=== PATIENT | male | born 1935 | race Caucasian/White ===

== ENCOUNTER → 2017-02-20 08:11 | Outpatient (CLI) | payer MEDICARE ==
[2013-04-14 16:31] VITALS: BMI 26.6
[~2017-02-20 08:11] MED LIST: ASPIRIN325 MG PO; BYSTOLIC10 MG PO; ENTRESTO 24 MG1 EACH PO; IMDUR30 MG PO; LANOXIN125 MCG PO; LASIX40 MG PO; LISINOPRIL10 MG; LISINOPRIL10 MG GT; LISINOPRIL10 MG NG; LISINOPRIL10 MG PO; LORTAB LIQUID15 ML PO; MICRO-K10 MEQ PO; NITRO-DUR0.4 MG TD; NITROSTAT0.4 MG SL; PLAVIX75 MG PO; SOMA350 MG; SOMA350 MG PO; SPIRIVA18 MCG INH; TENORMIN100 MG PO; TENORMIN50 MG PO; VALIUM10 MG PO; ZESTRIL10 MG PO
[2017-02-20 08:36] LABS: BASOPHILS 1.1 % (0-2); EOSINOPHILS 4.6 % (0-7); HEMOGLOBIN 13.7 g/dL (13.5-17.5); IMMATURE GRANULOCYTES 0.4 % (0-5); LYMPHOCYTES 16.5 % (15-50); MCH 30.7 pg (26.0-34.0); MCHC 33.4 g/dL (31.0-37.0); MCV 91.9 fL (80.0-100.0); MEAN PLATELET VOLUME 10.8 fL (7.4-10.4); NEUTROPHILS 61.4 % (40-80); PLATELET COUNT 170 10x3/uL (130-400); RBC 4.46 10x6/uL (4.20-6.10); RDW 14.6 % (11.5-14.5)
[2017-02-20 09:05] LABS: ALBUMIN 3.4 g/dL (3.4-5.0); ALKALINE PHOSPHATASE 79 U/L (46-116); ALT (SGPT) 15 U/L (10-68); BILIRUBIN - TOTAL 2.76 mg/dL (0.2-1.3); CALC OSMOLALITY 286 mosm/kg (275-300); CALCIUM 8.9 mg/dL (8.5-10.1); CARBON DIOXIDE 32.5 mmol/L (21.0-32.0); CHLORIDE - SERUM 103 mmol/L (98-107); CHOL - HDL RATIO 3.4 ratio (2.3-4.9); CHOLESTEROL, TOTAL 179 mg/dL (0-200); GLUCOSE 92 mg/dL (74-106); HDL CHOLESTEROL 52 mg/dL (32-96); LDL CHOLESTEROL 110 mg/dL (0-100); LDL-HDL RATIO 2.1 ratio (1.5-3.5); PROTEIN - SERUM 6.7 g/dL (6.4-8.2); SODIUM 144 mmol/L (136-145); THYROID STIMULATING HORMONE 0.46 uIU/mL (0.36-3.74); TRIGLYCERIDE 87 mg/dL (30-200); UREA NITROGEN 12 mg/dL (7-18); eGFR NON AFRICAN AMERICAN 76 mL/min (90-120)
== END | disposition home or self-care (01) ==
LOC: D.LAB 08:00
PROVIDERS: Family Medicine
DX: Z00.00 Encounter for general adult medical examination without abnormal findings (principal); I10 Essential (primary) hypertension; R53.83 Other fatigue; I20.8 Other forms of angina pectoris; J44.9 Chronic obstructive pulmonary disease, unspecified

== ENCOUNTER 2017-02-22 11:21 | Inpatient (IN) | payer MEDICARE ==
[~2017-02-22 11:21] MED LIST changes: -ENTRESTO 24 MG1 EACH PO; -NITROSTAT0.4 MG SL; -SPIRIVA18 MCG INH; -TENORMIN50 MG PO
[2017-02-22 12:21] LABS: APPEARANCE CLEAR (CLEAR); BILIRUBIN NEGATIVE (NEGATIVE); COLOR DK YELLOW (YELLOW); GLUCOSE NEGATIVE (NEGATIVE); KETONE MODERATE mg/dL (NEGATIVE); NITRITE NEGATIVE (NEGATIVE); PROTEIN NEGATIVE (NEGATIVE); SPECIFIC GRAVITY 1.025 (1.005-1.020)
[2017-02-22 12:22] LABS: BACTERIA MODERATE /hpf (NONE SEEN); HYALINE CAST OCC /lpf (NONE SEEN); MUCUS >1+ /lpf (NONE SEEN); RED CELLS - URINE OCC /hpf (0-5)
[2017-02-22 13:29] LABS: BASOPHILS 0.4 % (0-2); EOSINOPHILS 1.3 % (0-7); HEMATOCRIT 42.6 % (42.0-54.0); HEMOGLOBIN 13.9 g/dL (13.5-17.5); IMMATURE GRANULOCYTES 0.3 % (0-5); LYMPHOCYTES 17.4 % (15-50); MCH 30.1 pg (26.0-34.0); MCHC 32.6 g/dL (31.0-37.0); MCV 92.2 fL (80.0-100.0); MEAN PLATELET VOLUME 10.7 fL (7.4-10.4); MONOCYTES 11.4 % (2-11); NEUTROPHILS 69.2 % (40-80); PLATELET COUNT 186 10x3/uL (130-400); RBC 4.62 10x6/uL (4.20-6.10); RDW 14.7 % (11.5-14.5); WBC 7.5 10x3/uL (4.8-10.8)
[2017-02-22 13:55] LABS: ALBUMIN 3.4 g/dL (3.4-5.0); ALKALINE PHOSPHATASE 85 U/L (46-116); ALT (SGPT) 8 U/L (10-68); BILIRUBIN - TOTAL 1.42 mg/dL (0.2-1.3); CALC OSMOLALITY 282 mosm/kg (275-300); CALCIUM 8.9 mg/dL (8.5-10.1); CARBON DIOXIDE 30.2 mmol/L (21.0-32.0); CHLORIDE - SERUM 105 mmol/L (98-107); CREATINE KINASE 55 UL (21-232); CREATININE - SERUM 0.9 mg/dL (0.6-1.3); GLUCOSE 87 mg/dL (74-106); PROTEIN - SERUM 6.5 g/dL (6.4-8.2); SODIUM 143 mmol/L (136-145); UREA NITROGEN 11 mg/dL (7-18); eGFR NON AFRICAN AMERICAN 85 mL/min (90-120)
[2017-02-22 13:57] LABS: POTASSIUM - SERUM 2.4 mmol/L (3.5-5.1)
[2017-02-22 20:00] VITALS: BP 153/72
[2017-02-22] MEDS ORDERED: ENTRESTO 24 MG1 EACH PO (22:00)
[2017-02-22] MEDS ORDERED: TENORMIN50 MG PO (22:01)
[2017-02-22] MEDS ORDERED: NITROSTAT0.4 MG SL (22:01)
[2017-02-23] VITALS (8 sets, daily range): BP systolic 135–163; BP diastolic 70–92; BMI 27.6
--- NOTE | 2017-02-23 04:48 | NUR ---
REC'D REPORT FROM ZAY BENITEZ FROM THE ER. BROUGHT BY WHEELCHAIR. HAS A RIGHT FOREARM IV THAT IS SALINE LOCKED. ALERT AND ORIENTED X3. SWELLING IN LOWER EXTREMITIES. IS COMPLAINING OF A HEADACHE. WILL CALL TO GET SOMETHING FOR HIM. DID ADMISSION HISTORY AND MED REC. ZAY REYES WILL DO THE ASSESSMENT. INSTRUCTED TO CALL IF NEEDED ANYTHING, VERBALIZED UNDERSTANDING. BED LOW, LOCKED, CALL LIGHT IN REACH, ALARM ON.
--- NOTE | 2017-02-23 04:51 | NUR ---
PULLED IV OUT OF RIGHT FOREARM. THERE IS A BRUISE FORMING AND A KNOT WELL. TRIED TO RESTART IV AND COULD NOT GET IT. ZAY MART TRIED 3 MORE TIMES AND COULD NOT GET ANYTHING WELL. WILL LET DAYSHIFT NURSE KNOW. IS GETTING NOTHING BY IV AT THIS TIME.
[2017-02-23 06:33] LABS: BASOPHILS 0.4 % (0-2); EOSINOPHILS 3.1 % (0-7); HEMATOCRIT 41.9 % (42.0-54.0); HEMOGLOBIN 13.8 g/dL (13.5-17.5); IMMATURE GRANULOCYTES 0.3 % (0-5); LYMPHOCYTES 17.3 % (15-50); MCH 30.5 pg (26.0-34.0); MCHC 32.9 g/dL (31.0-37.0); MCV 92.5 fL (80.0-100.0); MEAN PLATELET VOLUME 10.5 fL (7.4-10.4); MONOCYTES 15.6 % (2-11); NEUTROPHILS 63.3 % (40-80); PLATELET COUNT 183 10x3/uL (130-400); RBC 4.53 10x6/uL (4.20-6.10); RDW 14.9 % (11.5-14.5); WBC 7.1 10x3/uL (4.8-10.8)
[2017-02-23 06:51] LABS: CALC OSMOLALITY 283 mosm/kg (275-300); CALCIUM 8.7 mg/dL (8.5-10.1); CHLORIDE - SERUM 106 mmol/L (98-107); CREATININE - SERUM 0.9 mg/dL (0.6-1.3); GLUCOSE 93 mg/dL (74-106); MAGNESIUM - SERUM 1.7 mg/dL (1.8-2.4); PHOSPHOROUS 1.9 mg/dL (2.5-4.9); SODIUM 143 mmol/L (136-145); UREA NITROGEN 11 mg/dL (7-18); eGFR NON AFRICAN AMERICAN 85 mL/min (90-120)
[2017-02-23 06:52] LABS: POTASSIUM - SERUM 2.8 mmol/L (3.5-5.1)
--- NOTE | 2017-02-23 07:59 | NUR ---
22G IV SITED TO PT'S LEFT HAND BY ELZA GONZALES X1 ATTEMPT. BRISK BLOOD RETURN PRESENT. RESTARTED IV FLUIDS AT THIS TIME. BED ALARM ON. URINAL AND CALL LIGHT IN REACH, WILL CONTINUE WITH PLAN OF CARE.
--- NOTE | 2017-02-23 09:54 | NUR ---
SCHEDULED MEDICATIONS ADMINISTERED AT THIS TIME. TAKEN WITHOUT DIFFICULTY.
--- NOTE | 2017-02-23 11:52 | NUR ---
REPORT CALLED TO MIGDALIA AT [facility]. WILL CALL AND LET HER KNOW WHEN AMBULANCE ARRIVES TO TRANSPORT PT.
--- NOTE | 2017-02-23 15:45 | NUR ---
POSITIONED UPRIGHT IN BED AT THIS TIME. SCD'S AND BED ALARM ON. CALL LIGHT IN REACH, WILL CONTINUE WITH PLAN OF CARE.
--- NOTE | 2017-02-23 19:59 | NUR ---
PATIENT RESTING IN BED AND DENIES NEEDS AT THIS TIME. BED IN LOWEST POSITION AND CALL LIGHT WITHI REACH. ENCOURAGED THE PATIENT TO CALL IF HE HAS NEEDS.
--- NOTE | 2017-02-23 21:40 | NUR ---
INFORMED JOSE LUIS REINFORCER THAT I NEED UNVERIFIED MEDS PULLED FOR THE PATIENT
[2017-02-24 04:06] VITALS: BP 116/77
[2017-02-24 05:30] LABS: BASOPHILS 0.4 % (0-2); EOSINOPHILS 0.7 % (0-7); HEMATOCRIT 39.3 % (42.0-54.0); HEMOGLOBIN 12.8 g/dL (13.5-17.5); IMMATURE GRANULOCYTES 0.3 % (0-5); LYMPHOCYTES 16.6 % (15-50); MCH 30.2 pg (26.0-34.0); MCHC 32.6 g/dL (31.0-37.0); MCV 92.7 fL (80.0-100.0); MEAN PLATELET VOLUME 10.6 fL (7.4-10.4); MONOCYTES 11.7 % (2-11); NEUTROPHILS 70.3 % (40-80); PLATELET COUNT 157 10x3/uL (130-400); RBC 4.24 10x6/uL (4.20-6.10); WBC 7.3 10x3/uL (4.8-10.8)
[2017-02-24 05:39] LABS: CALC OSMOLALITY 284 mosm/kg (275-300); CALCIUM 8.9 mg/dL (8.5-10.1); CARBON DIOXIDE 29.4 mmol/L (21.0-32.0); CHLORIDE - SERUM 107 mmol/L (98-107); CREATININE - SERUM 0.8 mg/dL (0.6-1.3); GLUCOSE 106 mg/dL (74-106); POTASSIUM - SERUM 3.6 mmol/L (3.5-5.1); SODIUM 143 mmol/L (136-145); UREA NITROGEN 12 mg/dL (7-18); eGFR NON AFRICAN AMERICAN > 90 mL/min (90-120)
[2017-02-24 06:13] LABS: MAGNESIUM - SERUM 1.8 mg/dL (1.8-2.4)
[2017-02-24 06:15] LABS: PHOSPHOROUS 2.7 mg/dL (2.5-4.9)
--- NOTE | 2017-02-24 07:45 | NUR ---
ASSESSMENT PER FLOW SHEET.PT WITHOUT DISTRESS.DENIES NEEDS AT PRESENT.CALL LIGHT IN REACH. BED ALARM ON AND DOOR OPEN.MONITOR FOR NEEDS
[2017-02-24 10:00] VITALS: BP 153/81
--- NOTE | 2017-02-24 11:43 | NUR ---
REMAINS WITHOUT NEEDS.FALL PREVENTION IN PROGRESS.
[2017-02-24 12:20] VITALS: BP 126/85
--- NOTE | 2017-02-24 14:54 | NUR ---
TO SEE PT. PT REMAINS WITHOUT DISTRESS.ORDERS RECIEVED AND INITIATED
[2017-02-24 16:06] VITALS: BP 148/84
--- NOTE | 2017-02-24 18:37 | NUR ---
REMAINS WITHOUT CHANGE FROM INITIAL ASSESSMENT.CONT PLAN OF CARE
[2017-02-24 20:43] VITALS: BP 156/82
[2017-02-25] VITALS: BP 139/75
--- NOTE | 2017-02-25 01:59 | NUR ---
PATIENT RESTING IN BED AND DENIES NEEDS AT THIS TIME. COMPLETED ASSESSMENT AND VITALS. PATIENT DENIES NEEDS AT THIS TIME. BED IN LOWEST POSITION AND CALL LIGHT WITHIN REACH. ENCOURAGED THE PATIENT TO CALL IF HE HAS NEEDS.
[2017-02-25 04:00] VITALS: BP 140/72
[2017-02-25 04:51] LABS: BASOPHILS 0.4 % (0-2); EOSINOPHILS 2.8 % (0-7); HEMATOCRIT 41.1 % (42.0-54.0); HEMOGLOBIN 13.1 g/dL (13.5-17.5); IMMATURE GRANULOCYTES 0.4 % (0-5); MCH 29.6 pg (26.0-34.0); MCHC 31.9 g/dL (31.0-37.0); MONOCYTES 12.8 % (2-11); NEUTROPHILS 64.6 % (40-80); PLATELET COUNT 149 10x3/uL (130-400); RBC 4.42 10x6/uL (4.20-6.10); RDW 14.9 % (11.5-14.5); WBC 7.9 10x3/uL (4.8-10.8)
[2017-02-25 04:58] LABS: CALC OSMOLALITY 283 mosm/kg (275-300); CARBON DIOXIDE 28.1 mmol/L (21.0-32.0); CHLORIDE - SERUM 105 mmol/L (98-107); CREATININE - SERUM 0.9 mg/dL (0.6-1.3); GLUCOSE 93 mg/dL (74-106); POTASSIUM - SERUM 3.7 mmol/L (3.5-5.1); SODIUM 142 mmol/L (136-145); UREA NITROGEN 14 mg/dL (7-18); eGFR NON AFRICAN AMERICAN 85 mL/min (90-120)
--- NOTE | 2017-02-25 08:00 | NUR ---
PT AOX4 RESP EVEN AND NONLABORED PT DENIES NEEDS AT THIS TIME IV TO LEFT HAND PATENT AND INTACT AT THIS TIME SRX2 BED AT LOWEST SETTING CALL LIGHT WITHIN REACH WILL CONTINUE TO MONITOR
[2017-02-25 08:31] VITALS: BP 152/71
--- NOTE | 2017-02-25 10:39 | NUR ---
Patient Name: SAVANAH GEORGE Admission Status: ER Accout number: [id number] Admission Date: 02-22-2017 : 1933 Admission Diagnosis: Attending: FEDERICO MAYER Current LOS: 3 Anticipated DC Date: 02-27-2017 Planned Disposition: Home Primary Insurance: MEDICARE A & B Discharge Planning Comments: CM MET WITH PATIENT AND CALLED NEPHEW (MANUEL) REGARDING DISCHARGE NEEDS AND PLANS. PATIENT STATED HE HAS BEEN LIVING ALONE BUT WILL BE MOVING IN WITH HIS NEPHEW AT DISCHARGE. NEPHEW STATED THERE IS A RAMP AT HIS HOME AND NO STAIRS INSIDE. PATIENT STATED HE HAS HELP WITH BATHS, DRESSING, AND MEDICATIONS. PATIENT HAS AN ELECTRIC WHEELCHAIR, CANE, ELEV TOILET SEAT, OXYGEN, NEBULIZER, AND PORTABLE O2 AT HOME. CINDY IS CURRENT WITH [facility], AND ITS ABOUT YOU. NEPHEW STATED HE WILL DRIVE PATIENT HOME AT DISCHARGE. CM WILL CONTINUE TO FOLLOW PATIENT WITH D/C NEEDS AND PLANS. PCP DR[facility]- [phone] MANUEL (NEPHLELIA) [phone] Toll Repairer Central Office: Silke Zaragoza Is the patient Alert and Oriented? Yes 0 * How many steps to enter\exit or inside your home? RAMP 0 * PCP DR. MAYER 0 * Pharmacy [facility] * Preadmission Environment Home Alone 0 * ADLs Independent 0 * Equipment Cane Elevated Toliet Seat Nebulizer Oxygen 0 * Other Equipment ELEC. WHEELCHAIR 0 * List name and contact numbers for known caregivers / representatives who currently or will assist patient after discharge: MANUEL GEORGE (NEPHEW) [phone] 0 * Community resources currently utilized Home Health 0 * Please name any agencies selected above. [facility] [address] [facility] ABOUT YOU 0 * Additional services required to return to the preadmission environment? Yes 0 * Can the patient safely return to the preadmission environment? No 0 * Has this patient been hospitalized within the prior 30 days at any hospital? No 0 Grand Total: 0
[2017-02-25 12:28] VITALS: BP 148/84
[2017-02-25] MEDS ORDERED: SPIRIVA18 MCG INH (13:34)
[2017-02-25 13:50] VITALS: BMI 26.8
[2017-02-25 16:38] VITALS: BP 140/64
--- NOTE | 2017-02-25 19:51 | NUR ---
PATIENT RESTING IN BED AND DENIES NEEDS AT THIS TIME. PATIENT'S DINNER TRAY IS STILL AT BEDSIDE. PATIENT DID NOT EAT ANY OF HIS DINNER AND STATED THAT HE IS NOT HUNGRY. EMPIED 150 ML OUT OF THE PATIENTLS URINAL. ASSESSMENT COMPLETE. BED IN LOWEST POSITION, CALL LIGHT WITHIN REACH, AND BED ALARM ON. ENCOURAGED THE PATIENT TO CALL IF HE HAS NEEDS.
[2017-02-25 20:00] VITALS: BP 133/70
[2017-02-26] VITALS: BP 146/72
--- NOTE | 2017-02-26 01:59 | NUR ---
ATTEMPTED TO PUT AN IV IN PATIENT AND WAS UNSUCCESSFUL. PATIENT STATED THAT HE WANTS TO WAIT UNTIL HE FINDS OUT IF HE IS BEING D/C'D BEFORE WE ATTEMPT ANOTHER IV.
[2017-02-26 04:00] VITALS: BP 134/68
[2017-02-26 08:26] VITALS: BP 159/80
--- NOTE | 2017-02-26 10:09 | NUR ---
REHAB PRESCREENING PT consult has been ordered. Rehab will continue to follow this patient for PT Evaluation to assess if patient meets rehab admission criteria. Thank you for this referral! Clotilde Nickerson, EVENTS ASSISTANT Rehab Circuits Engineer
--- NOTE | 2017-02-26 11:19 | NUR ---
Rehab Note- Visited with the patient, he is very interested in [facility] acute rehab when medically stable and ready for discharge from the acute hospital. Will follow at this time. Thank you for this referral! Shraddha Macdonald RN Clinical Liaison, [facility] Rehab
[2017-02-26 12:56] VITALS: BP 127/70
--- NOTE | 2017-02-26 15:18 | NUR ---
CM REASSESSMENT NOTE: PATIENT HAS BEEN ACCEPTED TO IP REHAB TODAY. FAMILY NOTIFIED (MANUEL). IMM SERVED
[2017-02-26 16:27] VITALS: BP 127/70
--- NOTE | 2017-02-26 17:37 | NUR ---
PT GIVEN DISCHARGE INSTRUCTIONS AT THIS TIME TAKEN VIA WHEELCHAIR FROM MED/SURG TO INPATIENT REHAB AT THIS TIME
== END 2017-02-26 17:38 | DRG 698 ==
LOC: D.ER 11:21 → D.M2 17:30 → D.SDCHOLD 18:41 → D.MS 19:57
PROVIDERS: Family Medicine; ADMIT Family Medicine
DX: T83.518A Infection and inflammatory reaction due to other urinary catheter, initial encounter (principal); J18.9 Pneumonia, unspecified organism; G93.41 Metabolic encephalopathy; G93.49 Other encephalopathy; N39.0 Urinary tract infection, site not specified; R41.0 Disorientation, unspecified; E87.6 Hypokalemia; E86.0 Dehydration; F41.9 Anxiety disorder, unspecified; R26.9 Unspecified abnormalities of gait and mobility; G89.4 Chronic pain syndrome; R53.81 Other malaise; I10 Essential (primary) hypertension; Z95.1 Presence of aortocoronary bypass graft; E78.5 Hyperlipidemia, unspecified

== ENCOUNTER 2017-02-26 17:15 | Inpatient (IN) | payer MEDICARE ==
[~2017-02-26 17:15] MED LIST changes: +ENTRESTO 24 MG1 EACH PO; +NITROSTAT0.4 MG SL; +SPIRIVA18 MCG INH; +TENORMIN50 MG PO
--- NOTE | 2017-02-26 19:20 | NUR ---
ASSESS PT VITAL SIGNS, RESULT SEE FLOWSHEET.
[2017-02-26 22:53] VITALS: BP 152/87; BMI 25.9
--- NOTE | 2017-02-26 23:15 | NUR ---
ASSESSMENT COMPLETED. ELZA GARCIA TO ADMINISTER NITRO S.L. FOR CHEST PAIN @ #7. NO SOB OR SWEATING OBSERVED. CALL LIGHT WITHIN REACH FOR ANY NEEDS.
--- NOTE | 2017-02-26 23:17 | NUR ---
PT C/O CHEST PAIN, ONE NITROSTAT 0.4MG TABLET GIVEN.
--- NOTE | 2017-02-26 23:22 | NUR ---
REASSESS PT FOR CHEST PAIN, STATE:" NO CHEST PAIN."
--- NOTE | 2017-02-27 03:50 | NUR ---
REST QUIETLY IN BED, EYE CLOSE, CALL LIGHT IN REACH.
--- NOTE | 2017-02-27 08:00 | NUR ---
PATIENT ALERT WITH SOME CONFUSION. FALL RISK. BED ALARM ON. CALL LIGHT WITHIN REACH. VOICES NO NEEDS AT THIS TIME.
[2017-02-27 08:33] VITALS: BP 152/92
[2017-02-27 09:39] LABS: CKMB 0.5 U/L (0.0-3.6); CREATINE KINASE 82 UL (21-232); TROPONIN-I 0.038 ng/mL (0.000-0.060)
--- NOTE | 2017-02-27 11:00 | NUR ---
PAOLO FROM FRON OFFICE DOWN TO PUT PATIENTS WALLET IN SAFE. PATIENT HAD MULTIPLE CARDS AND OVER FOUR HUNDRED DOLLARS WORTH OF RIVERA IN WALLET.
[2017-02-27 13:35] VITALS: BMI 25.8
--- NOTE | 2017-02-27 14:52 | NUR ---
SPEECH THERAPIST IN ROOM WORKING WITH CINDY.
--- NOTE | 2017-02-27 16:00 | NUR ---
RESTING QUIETLY.DENIES NEEDS.
--- NOTE | 2017-02-27 18:34 | NUR ---
PATIENT HELPED INTO BATHROOM. MIN ASST OF ONE PERSON. FROM TRANSFERS. PATIENT ABLE TO DO OWN PERICARE.
--- NOTE | 2017-02-27 19:35 | NUR ---
sitting up in bed watching tv. offers no complaints. alert to person and place. call light within reach. bed alarm on and bed low. will continue to montior
[2017-02-27 20:00] VITALS: BP 141/66
--- NOTE | 2017-02-27 22:17 | NUR ---
SITTING UP IN BED EYES CLOSED RESTING COMFORTABLY. APPROPRIATE RISE AND FALL OF CHEST. NO S/SX OF DISTRESS. CALL LIGHT WITHIN REACH. BED LOW AND ALARM ON. WILL CONTINUE TO MONITOR
--- NOTE | 2017-02-28 00:25 | NUR ---
ASSISTED PT TO BATHROOM AND BACK TO BED.
--- NOTE | 2017-02-28 03:45 | NUR ---
RESTING IN BED WITH EYES CLOSEED. NO S/S OF DISTRESS OBSERVED. ALARM IN PLACE AND FUNCTIONAL. URINAL IN REACH. HOB ELEVATED TO 90 DEGREES. NOT WEARING O2@ THIS TIME. RESP. EVEN AND UNLABORED.
--- NOTE | 2017-02-28 04:30 | NUR ---
REST IN BED, CALL LIGHT IN REACH.
--- NOTE | 2017-02-28 07:25 | NUR ---
SITTING UP IN BED WATCHING MORNING NEWS. DENIES ANY NEEDS. CALL LIGHT WITHIN REACH. BED IN LOWEST POSITION AND ALARM ON. WILL CONTINUE TO MONITOR
[2017-02-28 08:27] VITALS: BP 144/63
--- NOTE | 2017-02-28 10:45 | NUR ---
IN THERAPY GYM WITH PHYSICAL THERAPY. NO S/SX OF DISTRESS. DENIES PAIN. WILL CONTINUE TO MONITOR
--- NOTE | 2017-02-28 12:37 | NUR ---
SITTING UP IN BED EATING LUNCH. DENIES NEEDS OR PAIN. CALL LIGHT WITHIN REACH. WILL CONTINUE TO MONITOR
--- NOTE | 2017-02-28 14:49 | NUR ---
RD note Pt visisted and chart reviewed Pt reports he does not have an appetite and does not know why. He reported he feels tired and weak, RD encouraged po intake. Pt reported he is drinking his ensure and this RD encourage that as well. Pt eating better today on a Regular mechanical soft diet and ensure at all meals. consuming 50-75%. RE: continue diet and supplements may need appetite stimulant after further evaluation MVI with mineral daily RD to follow
--- NOTE | 2017-02-28 15:34 | NUR ---
LYING IN BED RESTING COMFORTABLY. APPROPRIATE RISE AND FALL OF CHEST. NO S/SX OF DISTRESS. WILL CONTINUE TO MONITOR
--- NOTE | 2017-02-28 21:48 | NUR ---
ASSISTED PT TO BATHROOM AND BACK TO BED.
[2017-02-28 23:43] VITALS: BP 126/62
--- NOTE | 2017-03-01 03:32 | NUR ---
RESTING IN BED WITH EYES CLOSED AT THIS TIME. NO S/S OF DISTRESSS OBSERVED.O2@ 2 LITERS PER N/C IN PLACE. REASP. EVEN AND UNLABORED. HOB ELEVATED TO 30 DEGREES. USES CALL LIGHT FOR ASSIST TO TOILET. CALL LIGHT AND OVERBED TABLE IN REACH.
--- NOTE | 2017-03-01 03:47 | NUR ---
ASSISTED PT TO BATHROOM AND BACK TO BED.
[2017-03-01 06:28] LABS: BASOPHILS 0.4 % (0-2); EOSINOPHILS 4.6 % (0-7); HEMATOCRIT 37.1 % (42.0-54.0); HEMOGLOBIN 12.2 g/dL (13.5-17.5); IMMATURE GRANULOCYTES 0.1 % (0-5); LYMPHOCYTES 18.6 % (15-50); MCH 29.8 pg (26.0-34.0); MCHC 32.9 g/dL (31.0-37.0); MCV 90.7 fL (80.0-100.0); MEAN PLATELET VOLUME 10.8 fL (7.4-10.4); MONOCYTES 13.4 % (2-11); NEUTROPHILS 62.9 % (40-80); PLATELET COUNT 151 10x3/uL (130-400); RBC 4.09 10x6/uL (4.20-6.10); RDW 15.2 % (11.5-14.5); WBC 6.9 10x3/uL (4.8-10.8)
[2017-03-01 06:42] LABS: CALC OSMOLALITY 283 mosm/kg (275-300); CALCIUM 8.4 mg/dL (8.5-10.1); CARBON DIOXIDE 28.9 mmol/L (21.0-32.0); CHLORIDE - SERUM 107 mmol/L (98-107); CREATININE - SERUM 0.8 mg/dL (0.6-1.3); GLUCOSE 84 mg/dL (74-106); POTASSIUM - SERUM 3.2 mmol/L (3.5-5.1); SODIUM 143 mmol/L (136-145); UREA NITROGEN 13 mg/dL (7-18); eGFR NON AFRICAN AMERICAN > 90 mL/min (90-120)
[2017-03-01 08:07] VITALS: BP 131/71
--- NOTE | 2017-03-01 08:08 | NUR ---
EATING BREAKFAST. DENIES NEEDS. CALL LIGHT IN REACH
--- NOTE | 2017-03-01 10:26 | NUR ---
PATIENT IS ALERT WITH SOME CONFUSION/FORGETFULNESS. WORKING IN REHAB ROOM WITH OCCUPATIONAL THERAPIST. DENIES ANY PAIN/DISC AT THIS TIME.
--- NOTE | 2017-03-01 12:49 | NUR ---
PATIENT REMINDED TO USE CALL LIGHT FOR NEEDS. CALL LIGHT WITHIN REACH. PATIENT HAS A VERY UNSTEADY GAIT.
--- NOTE | 2017-03-01 15:35 | NUR ---
FAMILY IN ROOM WITH PATIENT. PATIENT SITTING IN A WHEELCHAIR. FAMILY HELPED PATIENT INTO BATHROOM. BOX ALARM ON.
--- NOTE | 2017-03-01 20:05 | NUR ---
PT IN BED WITH HOB UP FOR COMFORT AND IS WATCHING TV. NO VOICED NEEDS AND HIS CALL LIGHT IS WITHIN REACH.
--- NOTE | 2017-03-01 20:20 | NUR ---
SIT UP IN BED AND EAT SNACK.
--- NOTE | 2017-03-02 02:24 | NUR ---
ASSISTED PT TO BATHROOM AND BACK TO BED.
[2017-03-02 03:36] VITALS: BP 130/69
--- NOTE | 2017-03-02 04:42 | NUR ---
REST QUIETLY IN BED, EYE CLOSE, CALL LIGHT IN REACH.
[2017-03-02 08:00] VITALS: BP 148/56
--- NOTE | 2017-03-02 08:00 | NUR ---
SITTING UP IN BED.CL IN REACH.
--- NOTE | 2017-03-02 08:22 | NUR ---
SITTING UP IN BED WATCHING TV AND VISITING ROOMMATE. DENIES ANY NEEDS OR PAIN. ALERT AND ORIENTED TO PLACE AND PERSON. REORIENTED TO TIME AND SITUATION. CONTINUES ON 2L OF O2 VIA NC. CALL LIGHT WITHIN REACH. WILL CONTINUE TO MONITOR
--- NOTE | 2017-03-02 15:28 | NUR ---
SITTING UP IN BED VISITING WITH FAMILY. OFFERS NO COMPLAINTS. CALL LIGHT WITHIN REACH. WILL CONTINUE TO MONITOR
--- NOTE | 2017-03-02 17:30 | NUR ---
ASSISTED WITH SHOWER AND DRESSING WITH MINIMAL ASSIST. ASSISTED TO BED AND DINNER TRAY SETUP. DENIES ANY OTHER NEEDS. NO S/SX OF DISTRESS. CALL LIGHT WITHIN REACH, BED LOW, AND ALARM ON. WILL CONTINUE TO MONITOR
--- NOTE | 2017-03-02 19:40 | NUR ---
RESTING IN BED WITH EYES OPEN. HOB ELEVATED AND O2@2 LITERS PER N/C. PLEASANT AND COOPERATIVE. ALERT AND ORIENTED TO PERSON, PLACE AND SITUATION. DENIES ANY PAIN.
--- NOTE | 2017-03-02 21:06 | NUR ---
RESTING IN BED WITH EYES CLOSED. HOB ELEVATED TO 30 DEGREES. ASSISTED TO TOILET. BED ALARM IN PLACE AND FUNCTIONAL. ELEVATED LEGS IN BED D/T DEPENDANT EDEMA TO LOWER EXTREMITIES BILATERALLY.
[2017-03-03 00:13] VITALS: BP 141/80
--- NOTE | 2017-03-03 00:46 | NUR ---
GETTING OUT OF BED WITH OUT ASSIST SEVERAL TIMES THIS SHIFT. ATTEMPTS TO REEDUCATE UNSUCCESSFUL. USES CALL LIGHT ONCE HE IS ON THE TOILET. ALARM IN PLACE AND FUNCTIONING PROPERLY. CALL LIGHT IN REAC.
--- NOTE | 2017-03-03 06:51 | NUR ---
LAYING IN BED WITH EYES OPEN. HOB ELEVATED AND O2@2 LITERS PER N/C. DENIES ANY PAIN. CONTINUES TO GO TO B/R WITHOUT ASSIST. BED ALARM IN PLACE. REORIENTED TO USE CALL LIGHT WHEN GETTING UP. DISREGARDS BED ALARM. USES CALL LIGHT WHEN GETTING OFF TOILET. GETTING IN BED BEFORE THIS NURSE CAN ANSWER LIGHT.
--- NOTE | 2017-03-03 07:50 | NUR ---
ASSISTED TO RESTROOM AND BACK TO BED WITH STAND BY ASSIST. NO S/SX OF DISTRESS. CONTINUES ON 2L OF O2 VIA NC. ALERT AND ORIENTED X3. CALL LIGHT WITHIN REACH, BED LOW AND ALARM ON. DENIES NEEDS. WILL CONTINUE TO MONITOR
[2017-03-03 08:00] VITALS: BP 156/60
--- NOTE | 2017-03-03 11:15 | NUR ---
ASSISTED TO RESTROOM AND BACK TO BED WITH STANDBY ASSIST. DENIES ANY PAIN OR NEEDS. CALL LIGHT WITHIN REACH. BED LOW AND ALARM ON. WILL CONTINUE TO MONITOR
--- NOTE | 2017-03-03 15:15 | NUR ---
SITTING UP IN BED C/O UPSET STOMACH, STATES IT FEELS "SOURED". ORDERED TUMS TO SEE IF THAT WILL GIVE PT RELIEF. PT STATES HE EITHER TAKES TUMS OR ALKASELZER AT HOME. DENIES ANY PAIN. CALL LIGHT WITHIN REACH. BED ALARM ON. WILL CONTINUE TO MONITOR
--- NOTE | 2017-03-03 16:00 | NUR ---
SITTING UP ON SIDE OF BED.ALARM IN PLACE.
--- NOTE | 2017-03-03 18:25 | NUR ---
SITTING UP IN BED VISITING WITH ROOMMATE. DENIES ANY NEEDS. CALL LIGHT WITHIN REACH. WILL CONTINUE TO MONITOR
[2017-03-03 19:39] VITALS: BP 146/73
--- NOTE | 2017-03-03 19:54 | NUR ---
RECIEVED UP IN BED WITH HOB ELEVATED TO 30 DEGREES. O2@ 2 LITERS PER N/C IN PLACE. RESP. EVEN AND UNLABORED. DENIES ANY PAIN. CALL LIGHT AND OVERBED TABLE IN REACH.
--- NOTE | 2017-03-03 21:36 | NUR ---
CONTINUES TO GET UP WITHOUT ASSIST. BED ALARM IN PLACE AND FUNCTIONING PROPERLY. BY RTHE TIME THIS NURSE CAN REACH PT HE'S ALREADY ON THE TOILET OR GETTING IN BED. REEDUCATED TO SAFTEY AND FALLS. CALL LIGHT AND OVERBED TABLE IN REACH.
--- NOTE | 2017-03-04 02:44 | NUR ---
RESTING IN BED WITH EYES OPEN. NO S/S OF DISTRESS OBSERVED AND DENIES ANY PAIN. HOB ELEVATED AND O2@ 2 LITERS PER N/C IN PLACE. RESP EVEN AND UNLABORED. CONTINUES TO GET OOB WITHOUT ASSIST. ATTEEMPTS TO REDIRECT UNSUCCESSFUL. CALL LIGHT AND OVERBED TABLE IN REACH. BED ALARM IN PLACE AND FUNCTIONAL.
[2017-03-04 05:36] LABS: BASOPHILS 0.6 % (0-2); EOSINOPHILS 2.3 % (0-7); HEMATOCRIT 41.1 % (42.0-54.0); HEMOGLOBIN 13.4 g/dL (13.5-17.5); IMMATURE GRANULOCYTES 0.3 % (0-5); LYMPHOCYTES 14.4 % (15-50); MCHC 32.6 g/dL (31.0-37.0); MCV 92.2 fL (80.0-100.0); MEAN PLATELET VOLUME 12.4 fL (7.4-10.4); MONOCYTES 12.8 % (2-11); NEUTROPHILS 69.6 % (40-80); PLATELET COUNT 161 10x3/uL (130-400); RBC 4.46 10x6/uL (4.20-6.10); RDW 15.5 % (11.5-14.5); WBC 8.6 10x3/uL (4.8-10.8)
[2017-03-04 05:55] LABS: CALC OSMOLALITY 283 mosm/kg (275-300); CALCIUM 9.5 mg/dL (8.5-10.1); CARBON DIOXIDE 27.5 mmol/L (21.0-32.0); CHLORIDE - SERUM 105 mmol/L (98-107); CREATININE - SERUM 0.9 mg/dL (0.6-1.3); GLUCOSE 92 mg/dL (74-106); POTASSIUM - SERUM 3.8 mmol/L (3.5-5.1); SODIUM 142 mmol/L (136-145); UREA NITROGEN 16 mg/dL (7-18); eGFR NON AFRICAN AMERICAN 85 mL/min (90-120)
--- NOTE | 2017-03-04 08:05 | NUR ---
PT AM MEDS ADMINSITERED. PT EATING BREAKFAST AND DENIES NEEDS. WCTM.
--- NOTE | 2017-03-04 11:22 | NUR ---
PT STATES HE IS NAUSEATED. PT GIVEN PRN ZOFRAN AT THIS TIME. WCTM.
--- NOTE | 2017-03-04 18:38 | NUR ---
PT RESTING IN ROOM, DENIES NEEDS.
--- NOTE | 2017-03-04 19:31 | NUR ---
UP IN BED WITH EYES OPEN AND TV ON. DENIES ANY NAUSEA. PLEASANT AND COOPERATIVE. HOB ELEVATED AND O2@2 LITERS PER N/C IN PLACE. CALL LIGHT AND OVERBED TABLE IN REACH.
[2017-03-04 20:18] VITALS: BP 134/84
--- NOTE | 2017-03-04 21:13 | NUR ---
UP IN BED WITH EYES OPEN AND TV ON. PLEASANT AND COOPERATIVE. DENIES ANY PAIN. HOB ELEVATED AND O2 @ 2 LITERS PER N/C IN PLACE. DENIES ANY PAIN AT THIS TIME. CALL LIGHT AND OVERBED TABLE IN REACH. CONTINUES TO BE NONCOMPLIANT WITH USING CALL LIGHT FOR ASSIST TO TOILET. FREQUENT REMINDEDS UNSUCCESSFUL.
--- NOTE | 2017-03-05 03:17 | NUR ---
RESTING IN BED WITH EYES CLOSED. NO S/S OF DISTRESS OBSERVED. HOB ELEVATED AND O2@2 LITERS PER N/C. RESP. EVEN AND UNLABORED.
--- NOTE | 2017-03-05 06:27 | NUR ---
RESTING IN BED WITH EYES CLOSED. NO S/S OF DISTRESS OBSERVED. HOB ELEVATED AND O2@ 2 LITERS PER N/C IN PLACE. BED ALARM IN PLACE AND FUNCTIONAL. CALL LIGHT AND OVERBED TABLE IN REACH.
[2017-03-05 07:55] VITALS: BP 140/70
--- NOTE | 2017-03-05 08:01 | NUR ---
PT RESTING IN BED WITH EYES OPEN CALL LIGHT IN REACH WILL MONITER
--- NOTE | 2017-03-05 08:16 | NUR ---
EATING BREAKFAST. CALL LIGHT IN REACH
--- NOTE | 2017-03-05 16:58 | NUR ---
PT RESTING IN BED WITH EYES OPEN CALL LIGHT IN REACH WILL MONITER
--- NOTE | 2017-03-05 19:30 | NUR ---
PATIENT AWOKE WHEN I APPROACHED HIS BEDSIDE. VSS. RIP ALARM ARMED. SR UP X3. REMINDED PATIENT NOT TO ATTEMPT OOB ALONE AND TO USE CALL LIGHT TO CALL NURSE FOR ASSIST. CONTINUES ON O2 @ 2L PER N/C.
[2017-03-05 21:15] VITALS: BP 138/77
--- NOTE | 2017-03-05 21:15 | NUR ---
ASSESSMENT AND HS MEDS COMPLETE DENIES PAIN OR OTHER NEEDS.
--- NOTE | 2017-03-05 22:30 | NUR ---
IN BED, EYES CLOSED. NO DISTRESS NOTED.
--- NOTE | 2017-03-06 00:10 | NUR ---
RESTING IN BED, EYES CLOSED. HOB UP 45 DEGREES.
--- NOTE | 2017-03-06 01:00 | NUR ---
PT POSITIVE PRINTER OPERATOR LIGHT, PT UP TO BR WITH ASSISTANCE, VOIDED BY SELF WITH NO DIFFICULTY, PT BACK TO BED, DENIES FURTHER NEEDS, BED IN LOW POSITION, SIDE RAILS X 2, CALL LIGHT IN REACH, BED ALARM ON AND WORKING PROPERLY
--- NOTE | 2017-03-06 04:40 | NUR ---
ASSISTED PATIENT UP TO BR TO URINATE AND THEN BACK TO BED.
--- NOTE | 2017-03-06 06:15 | NUR ---
IN BED, EYES CLOSED.
[2017-03-06 06:35] LABS: BASOPHILS 0.4 % (0-2); EOSINOPHILS 5.2 % (0-7); HEMATOCRIT 39.1 % (42.0-54.0); HEMOGLOBIN 12.7 g/dL (13.5-17.5); IMMATURE GRANULOCYTES 0.4 % (0-5); LYMPHOCYTES 16.5 % (15-50); MCH 30.3 pg (26.0-34.0); MCHC 32.5 g/dL (31.0-37.0); MCV 93.3 fL (80.0-100.0); MEAN PLATELET VOLUME 11.5 fL (7.4-10.4); MONOCYTES 14.6 % (2-11); NEUTROPHILS 62.9 % (40-80); PLATELET COUNT 170 10x3/uL (130-400); RBC 4.19 10x6/uL (4.20-6.10); RDW 15.7 % (11.5-14.5); WBC 7.3 10x3/uL (4.8-10.8)
[2017-03-06 07:00] LABS: CALC OSMOLALITY 280 mosm/kg (275-300); CALCIUM 8.8 mg/dL (8.5-10.1); CARBON DIOXIDE 28.8 mmol/L (21.0-32.0); CHLORIDE - SERUM 105 mmol/L (98-107); CREATININE - SERUM 0.9 mg/dL (0.6-1.3); GLUCOSE 77 mg/dL (74-106); POTASSIUM - SERUM 4.1 mmol/L (3.5-5.1); SODIUM 141 mmol/L (136-145); UREA NITROGEN 15 mg/dL (7-18); eGFR NON AFRICAN AMERICAN 85 mL/min (90-120)
--- NOTE | 2017-03-06 08:00 | NUR ---
PATIENT IS ALERT/PLEASANT WITH SOME FORGETFULNESS. RIP BED ALARM ON. PATIENT IS VERY IMPLUSIVE AND DOES NOT ALWAYS USE CALL LIGHT WHEN HE NEEDS TO USE THE BATHROOM.
--- NOTE | 2017-03-06 08:00 | NUR ---
BREAKFAST GIVEN.CL IN REACH.
[2017-03-06 08:11] VITALS: BP 149/82
--- NOTE | 2017-03-06 10:40 | NUR ---
PATIENT IN REHAB ROOM. WORKING WITH PHYSICAL THERAPIST. DENIES ANY PAIN/DISC AT THIS TIME
--- NOTE | 2017-03-06 13:15 | NUR ---
RD follow up, Pt consuming ensure usually before meals per staff. PT discussed at meeting today and son attended. Physical therapy reported pt with low endurance discussed about working to get fluid off. BM 03/05, 03/02-03/05 Average PO of 37% X 12 meals. Nino 18 with blanchable area to sacral area. poor itnake with increase protein needs. WT 02/27-175 REC: get a new weight Plan: will send CIB in am, and Ensure at lunch and dinner RD to follow Staff and family to continue to encourage intake.
--- NOTE | 2017-03-06 14:19 | NUR ---
CARE TEAM MEETING: SON ATTENDED MEETING AND PATIENT WILL DISCHARGE IN HIS CARE. TENATIVE DISCHARGE DATE IS 03/12/17. WILL CONTINUE TO FOLLOW WITH PATIENT
--- NOTE | 2017-03-06 18:31 | NUR ---
RIP BED ALARM REMAINS ON. PATIENT IS VERY FAST WHEN AMBULATING TO THE BATHROOM. THIS NURSE REMINDED PATIENT TO USE CALL LIGHT.
--- NOTE | 2017-03-06 20:00 | NUR ---
PT. IN BED WITH HOB UP FOR COMFORT AND IS WATCHIN TV. ASSESSMENT COMPLETED. NO VOICED NEEDS AT THIS TIME AND HIS CALL LIGHT IS WITHIN REACH.
[2017-03-06 20:15] VITALS: BP 125/75
--- NOTE | 2017-03-06 23:26 | NUR ---
PT. IN BED WITH HOB UP FOR COMFORT. EYES CLOSED AND RESP. DEEP AND EVEN. O2 ON AT 2L/MIN VIA N/C WITHOUT ANY S/S DISTRESS. CALL LIGHT WITHIN REACH.
--- NOTE | 2017-03-07 03:20 | NUR ---
PT. IN BED WITH HOB UP FOR COMFORT WITH EYES CLOSED AND RESP. EVEN. CALL LIGHT WITHIN REACH.
--- NOTE | 2017-03-07 07:56 | NUR ---
PT SITTING UP IN BED EATING BREAKFAST, DENIES NEEDS. WCTM.
--- NOTE | 2017-03-07 09:48 | NUR ---
PT AM MEDICATIONS ADMINISTERED. PT DENIES NEEDS. WCTM.
[2017-03-07 10:02] VITALS: BP 178/91
--- NOTE | 2017-03-07 17:51 | NUR ---
PT EATING DINNER, DENIES NEEDS. WCTM.
--- NOTE | 2017-03-07 19:45 | NUR ---
ASSISTED PT. TO/FROM BR AND POSITIONED TO COMFORT. ASSESSMENT COMPLETED. NO VOICED NEEDS AT THIS TIME AND HIS CALL LIGHT IS WITHIN REACH.
[2017-03-07 20:00] VITALS: BP 104/52
--- NOTE | 2017-03-07 23:16 | NUR ---
PT. IN BED WITH HOB UP FOR COMFORT. EYES CLOSED AND RESP. EVEN. O2 AT 2L/MIN VIA N/C IN PLACE WITHOUT ANY S/S DISTRESS OBSERVED. CALL LIGHT WITHIN REACH.
--- NOTE | 2017-03-08 03:02 | NUR ---
PT. IN BED WITH HOB ELEVATED FOR COMFORT. EYES CLOSED AND RESP. EVEN. O2 ON AT 2L/MIN VIA N/C WITHOUT ANY S/S DISTRESS. CALL LIGHT WITHIN REACH.
[2017-03-08 06:52] LABS: BASOPHILS 0.6 % (0-2); EOSINOPHILS 5.8 % (0-7); HEMATOCRIT 37.7 % (42.0-54.0); HEMOGLOBIN 12.3 g/dL (13.5-17.5); IMMATURE GRANULOCYTES 0.3 % (0-5); LYMPHOCYTES 17.3 % (15-50); MCH 30.3 pg (26.0-34.0); MCHC 32.6 g/dL (31.0-37.0); MCV 92.9 fL (80.0-100.0); MEAN PLATELET VOLUME 11.4 fL (7.4-10.4); MONOCYTES 15.3 % (2-11); NEUTROPHILS 60.7 % (40-80); PLATELET COUNT 179 10x3/uL (130-400); RBC 4.06 10x6/uL (4.20-6.10); RDW 15.7 % (11.5-14.5); WBC 7.9 10x3/uL (4.8-10.8)
[2017-03-08 07:06] LABS: CALC OSMOLALITY 277 mosm/kg (275-300); CALCIUM 8.7 mg/dL (8.5-10.1); CARBON DIOXIDE 30.4 mmol/L (21.0-32.0); CHLORIDE - SERUM 105 mmol/L (98-107); CREATININE - SERUM 0.8 mg/dL (0.6-1.3); GLUCOSE 84 mg/dL (74-106); POTASSIUM - SERUM 4.3 mmol/L (3.5-5.1); SODIUM 140 mmol/L (136-145); UREA NITROGEN 13 mg/dL (7-18); eGFR NON AFRICAN AMERICAN > 90 mL/min (90-120)
[2017-03-08 08:43] VITALS: BP 137/84
--- NOTE | 2017-03-08 10:15 | NUR ---
PT AM MEDS ADMINISTERED. PT DENIES NEEDS AT THIS TIME. WCTM.
--- NOTE | 2017-03-08 13:58 | NUR ---
PT RESTING IN ROOM, DENIES NEEDS. WCTM.
--- NOTE | 2017-03-08 17:05 | NUR ---
PT RESTING, EYES CLOSED. BED LOW. CL IN REACH.
[2017-03-08 19:00] VITALS: BP 125/78
--- NOTE | 2017-03-08 19:15 | NUR ---
PT IN BED WITH HOB UP FOR COMFORT. WATCHING TV. CONFUSED. NO IV. O2 @ 2L VIA NC. CONTINENT. STAND BY ASSIST. WALKER. WC. RIP ALARM ON. BED IN LOWESDT POSITION AND CALL LIGHT WITHIN REACH.
[2017-03-08 21:25] VITALS: BP 141/73
--- NOTE | 2017-03-08 21:36 | NUR ---
PT STATES THAT HE IS "NOT HAVING ANY CHEST PAIN."
--- NOTE | 2017-03-08 23:10 | NUR ---
PT IN BED WITH HOB UP FOR COMOFRT. EYES CLOSED. CHEST RISING AND FALLING. BED IN LOWEST POSITION AND CALL LIGHT WITHIN REACH.
--- NOTE | 2017-03-09 03:00 | NUR ---
PT LYING IN BED. EYES CLOSED. CHEST RISING AND FALLING. BED ALARM ON. BED IN LOWEST POSITION AND CALL LIGHT WITHIN REACH.
--- NOTE | 2017-03-09 05:32 | NUR ---
RESTING IN BED WITH EYES CLOSED AT THIS TIME. CONTINUES TO BE NON COMPLIANT WITH ASSIST TO TOILET. BED ALARM IN PLACE AND FUNCTIONING PROPERLY. O2@2 LITERS PER N/C. RESP EVEN AND UINLABORED. CALL LIGHT IN REACH.
--- NOTE | 2017-03-09 07:01 | NUR ---
PT C/O OF CHEST PAIN. PT GIVEN PRN NITRO X2. CARDIAC ENYMES AND EKG ORDERED. PT NOW COMPLAINING OF HEADACHE. WCTM.
[2017-03-09 07:27] LABS: CKMB 0.1 U/L (0.0-3.6); CREATINE KINASE 37 UL (21-232); TROPONIN-I 0.019 ng/mL (0.000-0.060)
[2017-03-09 09:00] VITALS: BP 139/748
--- NOTE | 2017-03-09 10:00 | NUR ---
PT HAS HAD NO MORE CP. PT AM MEDS ADMINISTERED. PT GOKUL NEEDS. WCTM.
--- NOTE | 2017-03-09 11:30 | NUR ---
PT SHOWERED AND SITTING UP FOR LUNCH. WCTM.
--- NOTE | 2017-03-09 18:41 | NUR ---
PT RESTING IN BED, DENIES NEEDS. WCTM.
[2017-03-09 20:00] VITALS: BP 136/78
--- NOTE | 2017-03-09 22:08 | NUR ---
PT STATES HE IS HAVING CHEST PAIN 9/10. WILL GIVE NITROGLYCERIN ORDERED.
--- NOTE | 2017-03-09 22:17 | NUR ---
PT STATES HE IS STILL HAVING CHEST PAIN LEVEL OF 8/10. ANOTHER NITRO GIVEN ORDERED. WILL CONTINUE TO ALSO MONITOR BP.
[2017-03-09 22:18] VITALS: BP 127/69
--- NOTE | 2017-03-09 22:24 | NUR ---
PT STATES HE IS HAVING CHEST PAIN NOW 5/10.
[2017-03-09 22:25] VITALS: BP 137/79
--- NOTE | 2017-03-09 22:26 | NUR ---
PER VAIBHAV COLLAZO SHE STATED, "TO WAIT TO SEE IF THE "CHEST PAIN" WILL GO AWAY." WILL CONTINUE TO MONITOR PT.
--- NOTE | 2017-03-10 01:40 | NUR ---
RESTING IN BED WITH EYES CLOSED AT THIS TIME. NO S/S OF DISTRESS OBSERVED. EARLIER KEPT PUTTING CALL LIGHT ON. ASKED THIS NURSE TO "MAKE SURE AND GET SOME SLEEP". ASSURED HIM I WOULD. NEXT TIME WANTED TO KNOW IF I HAD ANYTHIM=NG TO EAT. ASSURED HIM I DID. APPEARS TO BE MORE CONFUSED AT HS. GETS IN AND OUT OF BED WITHOUT ASSIST. BED ALARM IN PLACE AND FUNCTIONING PROPERLY. UNABLE TO REDIRECT TO USE CALL LIGHT.
[2017-03-10 02:36] VITALS: BP 138/78
--- NOTE | 2017-03-10 02:37 | NUR ---
PT STATES HE IS HAVING CHEST PAIN 8/. WILL GIVE NITRO ORDERED AND MONITOR PT'S BP.
--- NOTE | 2017-03-10 02:45 | NUR ---
PT STATES, "IT'S GONE (CHEST PAIN)". WILL CONTRINUE TO MONITOR.
[2017-03-10 02:47] VITALS: BP 131/81
--- NOTE | 2017-03-10 04:25 | NUR ---
PT UP IN BED WITH HOB UP FOR COMFORT. WATCHING TV. RIP ALARM ON. BED IN LOWEST POSITION AND CALL LIGHT WITHIN REACH.
[2017-03-10 11:55] VITALS: BP 131/81
--- NOTE | 2017-03-10 18:28 | NUR ---
PT RESTING IN BED, DENIES NEEDS. WCTM.
[2017-03-10 20:00] VITALS: BP 150/82
--- NOTE | 2017-03-10 20:00 | NUR ---
PT IN BED WITH HOB UP FOR COMFORT. RESTING QUIETLY. CONFUSED. NO IV. 02 @ 2L VIA NC. CONTINENT. STAND BY ASSIST. WALKER. WC. RIP ALARM ON. BED IN LOWEST POSITION AND CALL LIGHT WITHIN REACH.
--- NOTE | 2017-03-10 23:06 | NUR ---
PT UP WONDERING IN HALLS. PT STATES "THATS THE WORST HOUSE JAMISON EVER BEEN IN." PT REFERRING TO HIS ROOM. NOW IN RECLINER CHAIR AT NURSES STATION.
--- NOTE | 2017-03-11 00:04 | NUR ---
RESTINTG IN BEE WITH EYES CLOSED. HOB ELEVATED AND O2@ 2 LITERS PER N/C IN PLACE/ BED ALARM IN PLACE AND FUNCTIONING PROPERLY. BED IN LOW POSITION AND STAR ON DOOR. CALL LIGHT AND OVERBED TABLE IN REACH.
--- NOTE | 2017-03-11 00:21 | NUR ---
PT SITTING IN RECLINER CHAIRAT NURSING STATION. PT STATES, "IM JUST SITTING HERE RELAXIN."
--- NOTE | 2017-03-11 03:07 | NUR ---
WHEN ASSISTING PT TO USE URINAL NOTICED VERONICA AREA TO GROIN. UPON ASSESSMENT LEFT AND RIGHT GROIN AREA BRIGHT RED AND ODOROUS. ALSO TESTICLES AND GLUTEAL FOLDS. NOTIFIED WITH NEW ORDERS FOR NYSTATIN CREAM AND POWER QID. APPLIED TO AREA AND PT STATES FEELS MUCH BETTER. STATED IT BURNED LIKE CRAZY. ASKED IF IT ITCHED AND REPLIED YES. SAID THANK YOU. CALL LIGHT AND OVERBED TABLE IN REACH. PT HAS BEEN UP MOST OF SHIFT. LEFT HIS ROOM EARLIER AND FOUND SITTING IN A CHAIR ACROSS THE SWARTZ. STATING " THATS THE WORSE HOUSE I'VE EVER SLEPT IN. REFUSES TO GO BACK TO HIS ROOM. ASSISTED HIM TOP ROOM 13 BED A FOR NOW. APPEARS CALM AND RESTING WITH HOB AT 30 DEGREES. 02@2 LITERS PERN/C. ALARM INPLACE ON BED AND FUNCTIONING PROPERLY. BED IN LOW POSITION AND STAR ON DOORWAY. CALL LIGHT , URINAL AND BEDSIDE TABLE IN REACH.
[2017-03-11 06:09] LABS: BASOPHILS 0.4 % (0-2); EOSINOPHILS 1.9 % (0-7); HEMATOCRIT 40.1 % (42.0-54.0); HEMOGLOBIN 13.4 g/dL (13.5-17.5); IMMATURE GRANULOCYTES 0.3 % (0-5); LYMPHOCYTES 17.3 % (15-50); MCH 30.4 pg (26.0-34.0); MCHC 33.4 g/dL (31.0-37.0); MCV 90.9 fL (80.0-100.0); MEAN PLATELET VOLUME 11.5 fL (7.4-10.4); MONOCYTES 11.8 % (2-11); NEUTROPHILS 68.3 % (40-80); PLATELET COUNT 213 10x3/uL (130-400); RBC 4.41 10x6/uL (4.20-6.10); RDW 15.7 % (11.5-14.5); WBC 9.2 10x3/uL (4.8-10.8)
--- NOTE | 2017-03-11 06:39 | NUR ---
PT IN 1113A BED WITH HOB UP FOR COMFORT. RESTING QUIETLY. RIP ALARM ON. BED IN LOWEST POSITION AND CALL LIGHT WITHIN REACH.
[2017-03-11 06:52] LABS: CALC OSMOLALITY 278 mosm/kg (275-300); CALCIUM 9.6 mg/dL (8.5-10.1); CARBON DIOXIDE 26.4 mmol/L (21.0-32.0); CHLORIDE - SERUM 102 mmol/L (98-107); CREATININE - SERUM 0.9 mg/dL (0.6-1.3); GLUCOSE 95 mg/dL (74-106); POTASSIUM - SERUM 3.9 mmol/L (3.5-5.1); SODIUM 139 mmol/L (136-145); UREA NITROGEN 15 mg/dL (7-18); eGFR NON AFRICAN AMERICAN 85 mL/min (90-120)
--- NOTE | 2017-03-11 08:00 | NUR ---
PT SITTING UP IN BED EATING BREAKFAST. PT HAS MOVED ROOMS DUE TO NOT BEING ABLE TO SLEEP IN ROOM WITH NEW ROOMMATE. WCTM.
[2017-03-11 08:22] VITALS: BP 161/86
--- NOTE | 2017-03-11 10:12 | NUR ---
PT UP IN THERAPY GYM TOLERATING WELL WILL MONITER
--- NOTE | 2017-03-11 12:16 | NUR ---
PATIENT DISCHARGING HOME WITH FAMILY ON 03/12/17. SULEMAN AT HOME WILL RESUME CARE AT HOME. DME AT HOME: ELECTRIC WHEELCHAIR, CANE O2, NEBULIZER. DR. MAYER 03/27/17 @ 3:15. WILL CONTINUE TO FOLLOW WITH PATIENT UNTIL DISCHARGED
--- NOTE | 2017-03-11 15:02 | NUR ---
PATIENT CHOICE FORM FOR HOME HEALTH AND [facility] FORM SIGNED, EXPLAINED AND FILED IN CHART.
--- NOTE | 2017-03-11 17:50 | NUR ---
PT RESTING IN BED WITH EYES OPEN CALL LIGHT IN REACH WILL MONITER
--- NOTE | 2017-03-11 18:54 | NUR ---
RESTING IN BED WITH EYES OPEN AND TV ON. PLEASANT AND [id number]. BED ALARM IN PLACE AND FUNCTIONING PROPERLY. CALL LIGHT AND OVERBED TABLE IN REACH. O2@2 LITERSPER N/C IN PLACE AND RESP. EVEN AND UNLABORED. DENIES ANY PAIN OR NEEDS AT THIS TIME.
[2017-03-11 20:36] VITALS: BP 130/68
--- NOTE | 2017-03-11 21:12 | NUR ---
RESTING IN BED WITH EYES CLOSED. NO S/S OF DISTRESS OBSERVED. CALL LIGHT AND OVERBED TABLE IN REACH. HOB ELEVATED TO 30 DEGREESA ND O2@ 2 LITERS PER N/C IN PLACE.
[2017-03-11 22:32] VITALS: BP 130/68
--- NOTE | 2017-03-12 02:56 | NUR ---
RESTING IN BED WITH EYES OPEN AND TV ON. PLEANT AND COOPERATIVE. REQUESTING MILK AND EXCITED ABOUT GOING HOME IN AM. DENIES ANY PAIN AT THIS TIME. CALL LIGHT AND OVERBED TABLE IN REACH.
--- NOTE | 2017-03-12 07:36 | NUR ---
SITTING UP IN BED WATCHING MORNING NEWS. ALERT AND ORIENTED X3. DENIES ANY NEEDS. NO S/SX OF RESPIRATORY DISTRESS. CALL LIGHT WITHIN REACH. BED LOW AND ALARM ON. WILL CONTINUE TO MONITOR
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
[2017-03-12 09:50] VITALS: BP 141/79
--- NOTE | 2017-03-12 10:33 | NUR ---
SITTING UP IN WHEELCHAIR WATCHING TV. DENIES ANY NEEDS. CALL LIGHT WITHIN REACH AND BOX ALARM ON. WILL CONTINUE TO MONITOR
--- NOTE | 2017-03-12 12:00 | NUR ---
SITTING UP IN BED EATING LUNCH.
--- NOTE | 2017-03-12 13:45 | NUR ---
ASSISTED TO RESTROOM WITH STANDBY ASSIST. NO S/SX OF DISTRESS. ORIENTED TO NURSE CALL LIGHT IN RESTROOM. WILL CONTINUE TO MONITOR
--- NOTE | 2017-03-12 15:31 | NUR ---
REVIEWED DISCHARGE INSTRUCTIONS AND MEDICATIONS WITH PATIENT AND FAMILY. COPY OF DC ORDERS WAS SIGNED BY PATIENT AND COPY GIVEN. NO CONCERNS VOICED. TRANSPORTED PT OUT VIA WHEELCHAIR TO FRONT AND ASSISTED INTO PERSONAL VEHICLE DRIVEN BY FAMILY. BUCKLED PT UP IN FRONT SEAT.
== END 2017-03-12 15:33 | disposition home health service (06) | DRG 194 ==
LOC: D.REHAB 17:15
PROVIDERS: ADMIT Emergency Medicine
DX: J18.9 Pneumonia, unspecified organism (principal); N39.0 Urinary tract infection, site not specified; I82.409 Acute embolism and thrombosis of unspecified deep veins of unspecified lower extremity; E86.0 Dehydration; J43.9 Emphysema, unspecified; B96.20 Unspecified Escherichia coli [E. coli] as the cause of diseases classified elsewhere; R51 Headache; E87.6 Hypokalemia; F41.9 Anxiety disorder, unspecified; I25.10 Atherosclerotic heart disease of native coronary artery without angina pectoris; Z95.1 Presence of aortocoronary bypass graft; I10 Essential (primary) hypertension; G89.4 Chronic pain syndrome; R26.9 Unspecified abnormalities of gait and mobility; R41.0 Disorientation, unspecified; R53.81 Other malaise; E78.5 Hyperlipidemia, unspecified

== ENCOUNTER 2017-03-27 13:11 | Inpatient (IN) | payer MEDICARE ==
[2017-03-27 14:05] LABS: APPEARANCE CLEAR (CLEAR); BILIRUBIN NEGATIVE (NEGATIVE); COLOR DK YELLOW (YELLOW); GLUCOSE NEGATIVE (NEGATIVE); KETONE NEGATIVE (NEGATIVE); NITRITE NEGATIVE (NEGATIVE); PROTEIN NEGATIVE (NEGATIVE); UROBILINOGEN NORMAL (NORMAL)
[2017-03-27 14:07] LABS: BASOPHILS 0.2 % (0-2); EOSINOPHILS 1.1 % (0-7); HEMATOCRIT 42.6 % (42.0-54.0); HEMOGLOBIN 13.5 g/dL (13.5-17.5); IMMATURE GRANULOCYTES 0.5 % (0-5); LYMPHOCYTES 14.6 % (15-50); MCH 29.2 pg (26.0-34.0); MCHC 31.7 g/dL (31.0-37.0); MCV 92.2 fL (80.0-100.0); MEAN PLATELET VOLUME 11.8 fL (7.4-10.4); MONOCYTES 12.1 % (2-11); NEUTROPHILS 71.5 % (40-80); RBC 4.62 10x6/uL (4.20-6.10); RDW 15.7 % (11.5-14.5); WBC 8.7 10x3/uL (4.8-10.8)
[2017-03-27 14:08] LABS: PLATELET COUNT 140 10x3/uL (130-400)
[2017-03-27 14:32] LABS: ALBUMIN 3.1 g/dL (3.4-5.0); ALKALINE PHOSPHATASE 72 U/L (46-116); ALT (SGPT) 36 U/L (10-68); BILIRUBIN - TOTAL 1.35 mg/dL (0.2-1.3); CALC OSMOLALITY 288 mosm/kg (275-300); CALCIUM 8.9 mg/dL (8.5-10.1); CARBON DIOXIDE 32.8 mmol/L (21.0-32.0); CHLORIDE - SERUM 106 mmol/L (98-107); CREATININE - SERUM 0.8 mg/dL (0.6-1.3); GLUCOSE 98 mg/dL (74-106); POTASSIUM - SERUM 4.2 mmol/L (3.5-5.1); PRO BNP 23138 pg/mL (0-450); SODIUM 144 mmol/L (136-145); UREA NITROGEN 17 mg/dL (7-18); eGFR NON AFRICAN AMERICAN > 90 mL/min (90-120)
[2017-03-27 14:33] LABS: TROPONIN-I < 0.017 ng/mL (0.000-0.060)
--- NOTE | 2017-03-27 21:19 | NUR ---
RECIEVED TO ROOM 2114 FROM E.R. VIA W/C. PT ALERT AND CONFUSED, ORIENTED TO SELF ONLY. NO IV ACCESS, INFORMED BY ER NURSE THAT PT HAD PULLED OUT HIS PIV, AND THEY WERE UNALBE TO ESTABLISH ANY OTHER ACCESS AFTER SEVERAL DIFFERENT ATTEMPTS. PLACED ON TELEMETRY, 79 C-AFIB PER MT JUN. RESPERATIONS EVEN ON AT 2 LITER VIA NC. PT DENEIS ANY PAIN, FRESH ICE WATER GIVEN AT PT REQUEST. ORIENTED PT TO CL, BED LOW, CL IN REACH SR UP X2. BED ALARM IN USE.
[2017-03-27] MEDS ORDERED: OMEPRAZOLE40 MG PO (21:31)
[2017-03-27 21:44] VITALS: BP 129/82
--- NOTE | 2017-03-27 23:37 | NUR ---
HS MEDS GIVEN WITH FRESH ICE WATER, NO NEEDS VOICED AT THIS TIME.
[2017-03-28 00:31] VITALS: BP 141/75
--- NOTE | 2017-03-28 01:41 | NUR ---
RESTING WITH EYES CLOSED, RESPERATIONS EVEN, NO S/S DISTRESS NOTED.
--- NOTE | 2017-03-28 02:30 | NUR ---
LYING IN BED WITH EYES CLOSED, WILL CONTINUE WITH PLAN OF CARE. 75 CAF ON TELEMETRY.
--- NOTE | 2017-03-28 02:57 | NUR ---
FINGERPRINT CLASSIFIER WALKED INTO ROOM AND FOUND PT SITTING ON THE FLOOR, AND THE OVER BED TABLE HAD BEEN TURNED OVER ONTO THE BED. PT STATED THAT HE WAS "TRYING TO CLIMB OFF THE OF THE TABLE" ASSISTED PT BACK TO BED, SMALL ABRASION NOTED TO LEFT SIDE OF BACK. PT DENIES ANY PAIN. PT CONFUSED AND ORIENTED TO NAME ONLY. SR UP X3, BED ALARM ON. STRESSED THE IMPORTANCE TO THE PT OF THE USE OF THE CALL LIGHT WHEN NEEDING HELP. PT STATED "OK" DOOR OPEN FOR CLOSE OBSERVATION.
--- NOTE | 2017-03-28 04:01 | NUR ---
UP WITH ASSIST TO BR.
[2017-03-28 05:33] VITALS: BP 149/88
--- NOTE | 2017-03-28 06:09 | NUR ---
PAGE OUT TO DR MAYER TO NOTIFY OF PTS SLIP OUT OF BED.
--- NOTE | 2017-03-28 06:16 | NUR ---
SPOKE WITH DR MAYER, IN FORMED HIM OF PTS SLIP, NO NEW ORDERS GIVEN AT THIS TIME.
[2017-03-28 06:21] LABS: BASOPHILS 0.2 % (0-2); EOSINOPHILS 0.8 % (0-7); HEMATOCRIT 42.3 % (42.0-54.0); HEMOGLOBIN 13.3 g/dL (13.5-17.5); IMMATURE GRANULOCYTES 0.2 % (0-5); LYMPHOCYTES 17.2 % (15-50); MCH 29.2 pg (26.0-34.0); MCHC 31.4 g/dL (31.0-37.0); MEAN PLATELET VOLUME 12.2 fL (7.4-10.4); MONOCYTES 12.4 % (2-11); NEUTROPHILS 69.2 % (40-80); PLATELET COUNT 163 10x3/uL (130-400); RBC 4.55 10x6/uL (4.20-6.10); RDW 15.7 % (11.5-14.5); WBC 8.7 10x3/uL (4.8-10.8)
--- NOTE | 2017-03-28 06:22 | NUR ---
SPOKE WITH PTS LUKASZ JACKSON, INFORMED HIM THAT PT SLIPPED OUT OF BED EARLIER THIS MORNING AND THAT THERE WER SERIOUS INJURIES NOTED. UP DATE ON CONDITION GIVEN, WILL CONT TO MONITOR.
[2017-03-28 07:03] LABS: CALC OSMOLALITY 293 mosm/kg (275-300); CALCIUM 8.9 mg/dL (8.5-10.1); CARBON DIOXIDE 31.4 mmol/L (21.0-32.0); CHLORIDE - SERUM 107 mmol/L (98-107); CHOL - HDL RATIO 3.1 ratio (2.3-4.9); CHOLESTEROL, TOTAL 150 mg/dL (0-200); CKMB 0.8 U/L (0.0-3.6); CREATINE KINASE 39 UL (21-232); CREATININE - SERUM 0.9 mg/dL (0.6-1.3); GLUCOSE 91 mg/dL (74-106); HDL CHOLESTEROL 49 mg/dL (32-96); LDL CHOLESTEROL 84 mg/dL (0-100); LDL-HDL RATIO 1.7 ratio (1.5-3.5); MAGNESIUM - SERUM 2.2 mg/dL (1.8-2.4); PHOSPHOROUS 2.8 mg/dL (2.5-4.9); POTASSIUM - SERUM 3.8 mmol/L (3.5-5.1); SODIUM 147 mmol/L (136-145); THYROID STIMULATING HORMONE 0.85 uIU/mL (0.36-3.74); TRIGLYCERIDE 86 mg/dL (30-200); TROPONIN-I 0.029 ng/mL (0.000-0.060); UREA NITROGEN 17 mg/dL (7-18); eGFR NON AFRICAN AMERICAN 85 mL/min (90-120)
[2017-03-28 07:09] LABS: PRO BNP 30849 pg/mL (0-450)
--- NOTE | 2017-03-28 07:57 | NUR ---
ASSESSMENT DONE. NO NEEDS STATED AT THIS TIME. DENIES PAIN OR DISCOMFORT.
[2017-03-28 08:00] VITALS: BP 146/70
--- NOTE | 2017-03-28 09:44 | NUR ---
RESTS WITH EYES CLOSED. CALL LIGHT IN REACH. WILL MONITOR NEEDS.
[2017-03-28 12:00] VITALS: BP 122/69
[2017-03-28 13:16] VITALS: BMI 27.2
[2017-03-28 16:00] VITALS: BP 130/75
--- NOTE | 2017-03-28 18:19 | NUR ---
PATIENT RESTING IN BED WITH EYES CLOSED. WITHOUT CHANGES. NO C/O OF PAIN OR DISCOMFORT.
--- NOTE | 2017-03-28 19:27 | NUR ---
ASSESSMENT COMPELTE, PT IN BED RESTING WITH EYES CLOSED, RESPERATIONS EVEN 0N 02 AT 3LITER VIA NC. SR UP X3, BED IN LOWEST POSITION. BED ALARM IN USE.
[2017-03-28 20:00] VITALS: BP 137/70
--- NOTE | 2017-03-28 21:17 | NUR ---
PT RESTING WITH EYES CLOSED, HS MEDS HELD AT THIS TIME DUE TO PT BEING LETHARGIC. WILL CONT TO MONITOR.
--- NOTE | 2017-03-29 02:11 | NUR ---
RESTING WITH EYES CLOSED, RESPERATIONS EVEN, NO S/S DISTRESS NOTED.
--- NOTE | 2017-03-29 02:25 | NUR ---
LYING IN BED, CALL LIGHT IN REACH. WILL CONTINUE WITH PLAN OF CARE. 67 CAF WITH BBB ON TELEMETRY
[2017-03-29 04:00] VITALS: BP 145/73; BP 161/47
[2017-03-29 06:08] LABS: BASOPHILS 0.3 % (0-2); EOSINOPHILS 1.9 % (0-7); HEMATOCRIT 40.9 % (42.0-54.0); HEMOGLOBIN 12.9 g/dL (13.5-17.5); IMMATURE GRANULOCYTES 0.3 % (0-5); LYMPHOCYTES 18.1 % (15-50); MCH 29.2 pg (26.0-34.0); MCHC 31.5 g/dL (31.0-37.0); MCV 92.5 fL (80.0-100.0); MONOCYTES 13.7 % (2-11); NEUTROPHILS 65.7 % (40-80); RBC 4.42 10x6/uL (4.20-6.10); RDW 15.4 % (11.5-14.5); WBC 7.7 10x3/uL (4.8-10.8)
[2017-03-29 06:18] LABS: PLATELET COUNT 130 10x3/uL (130-400)
--- NOTE | 2017-03-29 06:35 | NUR ---
UP WITH ASSIST TO BR, GAIT UNSTEADY.
[2017-03-29 06:43] LABS: ALBUMIN 2.9 g/dL (3.4-5.0); ALKALINE PHOSPHATASE 67 U/L (46-116); ALT (SGPT) 30 U/L (10-68); BILIRUBIN - TOTAL 1.79 mg/dL (0.2-1.3); CALC OSMOLALITY 287 mosm/kg (275-300); CARBON DIOXIDE 31.5 mmol/L (21.0-32.0); CHLORIDE - SERUM 106 mmol/L (98-107); CREATININE - SERUM 0.8 mg/dL (0.6-1.3); GLUCOSE 73 mg/dL (74-106); PRO BNP 20482 pg/mL (0-450); SODIUM 144 mmol/L (136-145); UREA NITROGEN 17 mg/dL (7-18); eGFR NON AFRICAN AMERICAN > 90 mL/min (90-120)
--- NOTE | 2017-03-29 07:35 | NUR ---
ASSESSMENT DONE. PATIENT RESTING WITH EYES CLOSED. NO C/O PAIN OR DISCOMFORT AT THIS TIME. STATES NO NEEDS.
[2017-03-29 08:03] VITALS: BP 132/77
--- NOTE | 2017-03-29 09:50 | NUR ---
RESTS WITH EYES CLOSED. RESP UL ON . CALL LIGHT IN REACH. WILL CONT. PLAN OF CARE.
--- NOTE | 2017-03-29 09:51 | NUR ---
Nutrition Follow Up: Pt reported that he has no appetite at all. He agreed to try Ensure and prefers a variety of flavors. Spoke with nursing who reported that she had attempted to feed pt several times but pt is not hungry. She said that pt family member stated that he does not eat much but usually will drink. Will change diet to regular mech soft to encourage po intake. Will send Ensure with meals. RD following.
--- NOTE | 2017-03-29 12:13 | NUR ---
Patient Name: SAVANAH GEORGE Admission Status: ER Accout number: [id number] Admission Date: 03-28-2017 : 1935 Admission Diagnosis:SHORTNESS OF BREATH Attending: FEDERICO MAYER Current LOS: 1 Anticipated DC Date: Planned Disposition: Primary Insurance: MEDICARE A & B Discharge Planning Comments: CM TALKED WITH DEL WILDE, ABOUT DISCHARGE PLANNING AND NEEDS. HE HAS REQUESTED THAT THE PATIENT GO TO [facility]. HE STATED THAT HE HAS FAMILY THERE AND HE KNOWS HE WILL BE TAKEN CARE OF THERE. VERBAL CONSENT RECEIVED FOR PT CHOICE FORM AND VERIFIED BY ZAY SEGUNDO. HAVE PAGED DR MAYER TO OBTAIN A PHYSICAL THERAPY ORDER AND AM WAITING ON A REPLY. PATIENT HAS SULEMAN AT HOME, BUT DEL IS WANTING TO GET HIM REHAB TO STRENGTHEN HIM AND GET HIM BACK AT HOME WITH HIM. WILL SEND THE REFERRAL TO [facility], [address] [place], [place] [id number], CB: [phone], F: [phone]. CM WILL CONTINUE TO FOLLOW AND ASSIST NEEDED. Timing Inspector: Yesika Patino Is the patient Alert and Oriented? No * How many steps to enter\exit or inside your home? 2 * PCP DR FEDERICO MAYER * Pharmacy [facility] * Preadmission Environment Home with Family * ADLs Partial Dependent * Partial ADLs (Assistance needed) Bathing Dressing Medication Management * Equipment None * List name and contact numbers for known caregivers / representatives who currently or will assist patient after discharge: DEL WILDE, * Community resources currently utilized Home Health * Please name any agencies selected above. [facility] * Additional services required to return to the preadmission environment? Yes * Can the patient safely return to the preadmission environment? No * Has this patient been hospitalized within the prior 30 days at any hospital? No
[2017-03-29 13:58] VITALS: BP 113/50
--- NOTE | 2017-03-29 14:33 | NUR ---
PT Eval & PT PN faxed to [facility]. Waiting determination. CM will follow.
--- NOTE | 2017-03-29 17:51 | NUR ---
RESTING WITH EYES CLOSED. NO C/O PAIN OR DISCOMFORT. WITHOUT CHANGES AT THIS TIME.
[2017-03-29 20:00] VITALS: BP 122/65
--- NOTE | 2017-03-29 21:53 | NUR ---
INITIAL ROUNDS COMPLETED AT 1915 HRS. PT RESTING WITH EYES CLOSED. RESP EVEN AND REGULAR. ASSESSMENT COMPLETED AT 2004 HRS. VSS. CAF PER CM HR 87. 02 2LNC. PT ORIENTED TO PERSON ONLY. REORIENTED TO PLACE, TIME AND SITUATION. LUNGS DIMINISHED IN BASES BILAT. BRUISES NOTED BILAT ARMS. ASSISTED TO BR AT 0 HRS. VOIDED YELLOW URINE PER URINAL. ASSISTED BACK TO BED. PM MEDS GIVEN. PT CURRENTLY RESTING WITH EYES CLOSED. RESP EVEN AND REGULAR. SR UP X2, CALL LIGHT WITHIN REACH AND BED ALARM ON.
[2017-03-30] VITALS: BP 122/79
--- NOTE | 2017-03-30 00:27 | NUR ---
PT RESTING WIHT EYES CLOSED. RESP EVEN AND REGULAR. SR UP X2, CALL LIGHT WITHIN REACH.
--- NOTE | 2017-03-30 02:32 | NUR ---
PT RESTING WITH EYES CLOSED. RESP EVEN AND REGULAR. SR UP X2, CALL LIGHT WITHIN REACH AND BED ALARM ON.
[2017-03-30 04:00] VITALS: BP 108/69
--- NOTE | 2017-03-30 04:20 | NUR ---
PT UP TO BR WITH ASSIST. VOIDED IN TOILET. ASSISTED BACK TO BED. BED ALARM REACTIVATED. WILL CONTINUE TO MONITOR.
[2017-03-30 04:55] LABS: BASOPHILS 0.2 % (0-2); EOSINOPHILS 2.5 % (0-7); HEMATOCRIT 44.1 % (42.0-54.0); HEMOGLOBIN 14.1 g/dL (13.5-17.5); IMMATURE GRANULOCYTES 0.2 % (0-5); LYMPHOCYTES 19.1 % (15-50); MCH 29.4 pg (26.0-34.0); MCV 92.1 fL (80.0-100.0); MEAN PLATELET VOLUME 11.3 fL (7.4-10.4); MONOCYTES 13.8 % (2-11); NEUTROPHILS 64.2 % (40-80); PLATELET COUNT 127 10x3/uL (130-400); RBC 4.79 10x6/uL (4.20-6.10); RDW 15.3 % (11.5-14.5); WBC 9.2 10x3/uL (4.8-10.8)
[2017-03-30 05:25] LABS: CALC OSMOLALITY 277 mosm/kg (275-300); CALCIUM 9.6 mg/dL (8.5-10.1); CARBON DIOXIDE 31.4 mmol/L (21.0-32.0); CHLORIDE - SERUM 101 mmol/L (98-107); MAGNESIUM - SERUM 2.1 mg/dL (1.8-2.4); PHOSPHOROUS 2.6 mg/dL (2.5-4.9); SODIUM 140 mmol/L (136-145); UREA NITROGEN 15 mg/dL (7-18); eGFR NON AFRICAN AMERICAN 76 mL/min (90-120)
[2017-03-30 05:28] LABS: GLUCOSE 68 mg/dL (74-106)
--- NOTE | 2017-03-30 05:40 | NUR ---
GLUCOSE 68 PER LAB. APPLE JUICE WITH 1 PACKET OF SUGAR GIVEN. WILL CONTINUE TO MONITOR.
--- NOTE | 2017-03-30 06:23 | NUR ---
VSS THROUGHUT NGIHT. CAF PER CM. PT DENIED ANY DISCOMFORT. NEEDS MET; WILL CONTINUE TO MOITOR.
--- NOTE | 2017-03-30 07:30 | NUR ---
RESTING QUIETLY EYS CLOSED RESP UNLABORED NAD NOTED
[2017-03-30 08:00] VITALS: BP 117/65
[2017-03-30 11:24] VITALS: BP 106/61
[2017-03-30 16:00] VITALS: BP 111/55
--- NOTE | 2017-03-30 21:45 | NUR ---
INIITAL ROUNDS COMPLETED AT 1914 HRS. PT RESTING WITH EYES CLOSED. RESP EVEN AND REGULAR. ASSESSMENT COMPLETED AT 1954 HRS. VSS. CAF PER CM HR 89. PT ALERT, ORIENTED TO PERSON AND PLACE ONLY. REORIENTEDT O TIME AND SITUATION. ASSISTED TO BR. GAIT UNSTEADY. ASSISTED BACK TO BED. PM MEDS GINVE. PT CURRENTLY RESTING WITH EYES CLOSED. RESP EVEN AND REGULAR. SR UP X2, CALL LIGHT WITHIN REACH.
[2017-03-30 22:16] VITALS: BP 122/69
[2017-03-31] VITALS: BP 90/55
--- NOTE | 2017-03-31 00:14 | NUR ---
PT UP TO BR WITH ASSIST. GAIT STEADY. WILL CONTINUE TO MONITOR.
--- NOTE | 2017-03-31 02:21 | NUR ---
PT UP TO BR. VOIDED SMALL AMOUNT OF URINE. ASSISTED BACK TO BED. BED ALARM ON. WILL CONTINUE TO MONITOR.
[2017-03-31 04:00] VITALS: BP 121/67
--- NOTE | 2017-03-31 04:44 | NUR ---
PT RESTING WITH EYES CLOSED. RESP EVEN AND REGULAR. SR UP X2, CORINNE LIGHT WITHIN REACH AND BED ALARM ON.
--- NOTE | 2017-03-31 06:25 | NUR ---
ATH DONE, BED LINENS CHANGED. PT OUT OF BED NUMEROUS TIMES DURING SHIFT. GAIT UNSTEADY AT TIMES. NEEDS MET; WILL CONTINUE TO MONITOR. CAF PER CM. BED ALARM ON.
--- NOTE | 2017-03-31 07:30 | NUR ---
RECEIVED PT IN BED EYES CLOSED RESP UNLABORED NAD NOTED
[2017-03-31 08:00] VITALS: BP 115/57
[2017-03-31 12:00] VITALS: BP 101/39
[2017-03-31 16:00] VITALS: BP 107/53
[2017-03-31 20:00] VITALS: BP 118/60
--- NOTE | 2017-03-31 20:14 | NUR ---
PT FOUND IN ROOM 2113 AT SHIFT CHANGE. ESCORTED BACK TO BED ALN BED ALRM TURNED ON. ASESSMENT COMPLETED AT 1945 HRS. PT ALERT, ORIENTED TO PERSON ONLY. PT THOUGHT IT WAS BREAKFAST TIME. REORIENTED TO PLACE, TIME AND SITUATION. NO IV. O2 2LNC. LUNGS DIMINISHED IN BASES BILAT. BRUISES NOTED TO BOTH ARMS. SMALL SORE TO R WRIST. PT CURENTLY REATING A SANDWICH. BED ALARM ON AND CALL LIGHT WITHIN REACH.
[2017-04-01] VITALS: BP 128/71
--- NOTE | 2017-04-01 00:28 | NUR ---
PT UP TO BR WITH ASSIST. VOIDED MODERATE AMOUNT OF URINE. BACK TO BED. BED ALARM ON. WILL CONTINUE TO MONITOR.
[2017-04-01 04:00] VITALS: BP 124/69
--- NOTE | 2017-04-01 04:46 | NUR ---
PT RESTING WITH EYES CLOSED. RESP EVEN AND REGULAR. SR UP X2,CALL LIGHT WITHIN REACH.
[2017-04-01 08:00] VITALS: BP 116/68
--- NOTE | 2017-04-01 09:50 | NUR ---
TELEMETRY CAF. BED ALARM ON. CALL LIGHT IN REACH. WILL CONT. PLAN OF CARE.
[2017-04-01] MEDS ORDERED: BROVANA15 MCG/2 M INH (11:54)
[2017-04-01] MEDS ORDERED: IPRAT-ALBUT 0.5-3 ML UPD (11:55)
[2017-04-01] MEDS ORDERED: METOPROLOL TART50 MG PO (11:56)
[2017-04-01] MEDS ORDERED: VALIUM 2 MG TAB2 MG PO (11:56)
[2017-04-01] MEDS ORDERED: K-DUR20 MEQ PO (11:57)
[2017-04-01] MEDS ORDERED: Zaroxolyn PO (11:57)
[2017-04-01] MEDS ORDERED: LASIX40 MG PO (11:57)
[2017-04-01] MEDS ORDERED: PULMICORT0.25 MG/1 UPD (11:58)
--- NOTE | 2017-04-01 13:52 | NUR ---
NOTIFIED DR. MAYER VIA PHONE THAT PT WILL DC IN THE MORNING DUE TO HALF-WAY VAN NOT AVAILABLE TODAY TO SHIPPING COORDINATOR
--- NOTE | 2017-04-01 14:10 | NUR ---
Patient Name: SAVANAH GEORGE Encounter No: [id number] : 1935 Primary Insurance: MEDICARE A & B Anticipated DC Date: 04-02-2017 Planned Disposition: [facility] Facility External Planned Provider: [facility], MEDICARE REHAB BED DCP follow-up note: CM RECEIVED DISCHARGE ORDER, CALLED [facility], , SPOKE TO BLADIMIR, NOTIFIED OF DISCHARGE TO REHAB TODAY AND REQUESTED TRANSPORTATION. BLADIMIR ADVISED THAT THEIR VAN IS NOT AVAILABLE UNTIL TOMORROW MORNING, SHE WILL CALL CM BACK WITH PREASSEMBLER AND INSPECTOR TIME. CM RECEIVED RETURN CALL FROM MEGHNA, WHO ADVISED THAT VAN WILL PREASSEMBLER AND INSPECTOR PT IN THE MORNING BETWEEN 8AM AND 9:30AM. CM NOTIFIED PT WHO IS IN AGREEMENT WITH DISCHARGE PLAN, REQUESTED CM NOTIFIFY HIS NEPHEW, MANUEL. IMPORTANT MESSAGE FROM MEDICARE PROVIDED AND EXPLAINED. CM CALLED MANUEL GEORGE, , NOTIFIED OF ABOVE. MANUEL WILL CONTACT THE REHAB AND MAKE ARRANGEMENTS FOR PT'S CLOTHING AND PERSONAL ITEMS TO BE THERE FOR PT'S USE TOMORROW. NURSE REPORT TO BE CALLED TO [facility], ; ALF VAN WILL PREASSEMBLER AND INSPECTOR PT TOMORROW MORNING, 04-02-17, BETWEEN 0800 AND 0930 HOURS. CM TO FOLLOW AND ASSIST NEEDED. CM FAXED DISCHARGE INFORMATION TO [facility], [address] [address], . Quirino Rodriguez, CASE MANAGEMENT
[2017-04-01 16:00] VITALS: BP 101/60
[2017-04-01 19:00] VITALS: BP 124/68
[2017-04-02] VITALS: BP 113/72
[2017-04-02 04:00] VITALS: BP 109/62
[2017-04-02 07:42] VITALS: BP 122/57
--- NOTE | 2017-04-02 09:07 | NUR ---
REPORT CALLED TO [facility]. ESCORTED TO [facility]AMES WILSON BY W/Dana
--- NOTE | 2017-04-29 09:15 | EC ---
PATIENT:SAVANAH GEORGE DATE OF SERVICE: 03/28/17 SEX: M MEDICAL RECORD: [id number] DATE OF : [birth year] LOCATION:D.M2 D.211 AGE OF PATIENT: 82 ADMISSION DATE: 03/28/17 REFERRING PHYSICIAN: INTERPRETING PHYSICIAN: LUCIA WILSON MD ECHOCARDIOGRAM REPORT ECHO CHARGES 4 ECHO COMPLETE CLINICAL DIAGNOSIS: CHF HX OF CAD/CABG ECHOCARDIOGRAPHIC MEASUREMENTS (adult normal given) AC root (d.<3.7cm) 3.2 cm LV Septum d (<1.2 cm> 1.1 cm Valve Excursion 1.2 cm LV Septum (systole) 1.5 cm Left Atria (s.<4.0cm> 5.1 cm LVPW d(<1.2cm) 1.3 cm RV (d.<2.3cm) 4.8 cm LVPW (sytole) 1.7 cm LV diastole(<5.6CM) 6.8 cm MV E-F(>70mm/sec) cm LV systole 4.9 cm LVOT Diameter 1.2 cm MV exc.(>10mm) 1.9 cm Est.ejection fraction (50-75%) % Pericardial Effusion N DOPPLER: LVIT cm/sec A cm/sec E cm/sec LA cm/sec RVSP 59 mmHg LVOT 77 cm/sec AOP1/2T m/s Asc. Ao 177 cm/sec RVOT cm/sec RA 59 cm/sec PA 108 cm/sec AV Gradient Peak 12.49mmHg AV Mean 6.10 mmHg AV Area 1.0 cm MV Gradient Peak 1.54 mmHg MV Mean 3.98 mmHg MV Area cm COMMENTS: [facility] Marker: 2 ISMAEL CHRISTIAN Electrical Controls Assembler: 4 Dr. Wilson TAPE# PACS DATE OF SERVICE: 03/29/2017 PROCEDURE: Transthoracic echocardiogram. FINDINGS: 1. Left ventricle has mild concentric left ventricular hypertrophy. The inflow characteristics were not calculated because of atrial fibrillation. The overall ejection fraction is 45%. There is mild inferior and inferior apical hypokinesis. 2. The left atrium is severely dilated. ECHOCARDIOGRAM REPORT [id number] SAVANAH GEORGE 3. The mitral valve is thickened. There is severe eccentric mitral regurgitation. There is evidence of pulmonary vein reversal. 4. The aortic valve is sclerotic without stenosis. 5. The right ventricle is severely dilated. 6. The right atrium is moderately dilated. 7. The tricuspid valve has moderate tricuspid regurgitation with elevated right ventricular systolic pressures of 60 mmHg. 8. The pulmonic valve has mild pulmonic insufficiency. 9. The pericardium is normal. 10. The IVC is mildly dilated. CONCLUSIONS: The patient has evidence of mild hypertensive heart disease with regional wall motion abnormalities consistent with possible prior myocardial infarction, also with evidence of eccentric mitral regurgitation. The patient also is shown to have excessive chordae with an echodensity that does not appear to be related to vegetation. TRANSINT:[id number] Voice Confirmation ID: [id number] DOCUMENT ID: [id number] LUCIA WILSON MD at 0915 CC: [id number] DICTATION DATE: 03/29/17830 PARK GUIDE: 03/29/1759 DIS IN 04/02/17 [facility] [address] [place] [address]
== END 2017-04-02 09:08 | DRG 291 ==
LOC: D.ER 13:11 → D.M2 19:02 → OBSVTIME 19:02 → D.M2 19:13 → D.SDCHOLD 03-28 15:49 → D.M2 03-28 15:51
PROVIDERS: Family Medicine; ADMIT Family Medicine
DX: I11.0 Hypertensive heart disease with heart failure (principal); J96.00 Acute respiratory failure, unspecified whether with hypoxia or hypercapnia; J44.1 Chronic obstructive pulmonary disease with (acute) exacerbation; I50.9 Heart failure, unspecified; I34.0 Nonrheumatic mitral (valve) insufficiency; I25.10 Atherosclerotic heart disease of native coronary artery without angina pectoris; Z95.1 Presence of aortocoronary bypass graft; E78.5 Hyperlipidemia, unspecified; Z87.891 Personal history of nicotine dependence; I48.2 Chronic atrial fibrillation; I50.33 Acute on chronic diastolic (congestive) heart failure